=== PATIENT | male | born 1995 | race Two or more races ===

== ENCOUNTER 2021-12-22 12:44 | Emergency (ER) | payer MEDICAID ==
[~2021-12-22] VITALS: Ht 175.3 cm; Wt 202.8 kg
[2021-12-22] MEDS ORDERED: CEPH-510 PO (16:09)
[2021-12-22 16:21] VITALS: BP 131/75
== END 2021-12-22 16:24 | disposition home or self-care (01) ==
LOC: ER 12:44
DX: D17.24 Benign lipomatous neoplasm of skin and subcutaneous tissue of left leg (principal); W10.8XXA Fall (on) (from) other stairs and steps, initial encounter; Y93.89 Activity, other specified; Y92.89 Other specified places as the place of occurrence of the external cause; Y99.8 Other external cause status